=== PATIENT | male | born 1965 | race Caucasian/White ===

== ENCOUNTER → 2023-03-25 16:08 | Outpatient (REF) | payer BC, SELFPAY | LOC: DHCBC HW 16:08 | PROVIDERS: ATTENDING PHYSICIAN Internal Medicine; FAMILY PHYSICIAN Nurse Practitioner Family | DX: R00.1 Bradycardia, unspecified (principal); I44.0 Atrioventricular block, first degree; R55 Syncope and collapse; R00.2 Palpitations | CPT/HCPCS: 93306 ==

== ENCOUNTER → 2023-04-25 10:50 | Outpatient (REF) | payer BC, SELFPAY | LOC: RCS 10:50 | PROVIDERS: ATTENDING PHYSICIAN Internal Medicine; FAMILY PHYSICIAN Nurse Practitioner Family | DX: R00.1 Bradycardia, unspecified (principal); I44.0 Atrioventricular block, first degree; R55 Syncope and collapse; R00.2 Palpitations | CPT/HCPCS: 93017 ==